=== PATIENT | male | born 1950 | race Caucasian/White ===

== ENCOUNTER 2023-11-05 21:04 | Outpatient (CLI) | payer OTHER, MEDICARE, SELFPAY | END 2023-11-05 21:05 | disposition home or self-care (01) | LOC: AMB 11-15 15:38 | PROVIDERS: PCP Family Medicine; Visit Provider Emergency Medicine | DX: S09.90XA Unspecified injury of head, initial encounter (principal); V43.51XA Car driver injured in collision with sport utility vehicle in traffic accident, initial encounter; Y92.413 State road as the place of occurrence of the external cause | CPT/HCPCS: A0425; A0427 ==